=== PATIENT | female | born 1945 ===

== ENCOUNTER 2021-01-25 05:35 | Day surgery (SDC) | payer OTHER | END 2021-01-25 11:35 | disposition home or self-care (01) | LOC: AMB-ENDOS 05:35 | PROVIDERS: ATTEND Colon & Rectal Surgery | DX: K62.89 Other specified diseases of anus and rectum (principal); K64.0 First degree hemorrhoids; Z20.822 Contact with and (suspected) exposure to COVID-19 ==

== ENCOUNTER 2021-03-14 10:00 | Inpatient (IN) | payer OTHER ==
[~2021-03-14] VITALS: Ht 160 cm; Wt 81.2 kg
[2021-03-14] MEDS ORDERED: [UNRECOGNIZED DRUG - OTHER] PO (15:58)
[2021-03-14] MEDS ORDERED: SIMVA PO (15:59)
[2021-03-14] MEDS ORDERED: VERELAN240 MG PO (15:59)
[2021-03-14] MEDS ORDERED: FORTAMET500 MG PO (16:00)
[2021-03-14] MEDS ORDERED: HYDROCH PO (16:00)
[2021-03-20] MEDS ORDERED: SIMVASTATIN40 MG (11:23)
[2021-03-20] MEDS ORDERED: ENALAPRIL MALEA10 MG (11:23)
[2021-03-20] MEDS ORDERED: HYDROCHLOROTHIA25 MG (11:23)
[2021-03-20] MEDS ORDERED: CICLOPIROX15 GM (11:23)
[2021-03-20] MEDS ORDERED: GABAPENTIN300 M2 (11:23)
[2021-03-20] MEDS ORDERED: NABUMETONE750 MG (11:23)
== END 2021-03-22 16:54 | disposition home or self-care (01) | DRG 331 ==
LOC: O/R 03-20 06:01 → SURH 03-20 08:45 → SURG 03-20 14:47
PROVIDERS: ADMIT Colon & Rectal Surgery; ATTEND Colon & Rectal Surgery
PROC: 07BC4ZX Excision of Pelvis Lymphatic, Percutaneous Endoscopic Approach, Diagnostic (ICD-10-PCS; 2021-03-20)
PROC: 0DJD8ZZ Inspection of Lower Intestinal Tract, Via Natural or Artificial Opening Endoscopic (ICD-10-PCS; 2021-03-20)
PROC: 0DTN4ZZ Resection of Sigmoid Colon, Percutaneous Endoscopic Approach (ICD-10-PCS; principal; 2021-03-20 08:45)
DX: C18.7 Malignant neoplasm of sigmoid colon (principal); I13.10 Hypertensive heart and chronic kidney disease without heart failure, with stage 1 through stage 4 chronic kidney disease, or unspecified chronic kidney disease; N18.9 Chronic kidney disease, unspecified; E10.9 Type 1 diabetes mellitus without complications; Z79.4 Long term (current) use of insulin